=== PATIENT | female | born 1955 | race Asian ===

== ENCOUNTER 2024-12-27 19:51 | Inpatient (IN) | payer MEDICARE, OTHER, SELFPAY ==
[2024-12-27] VITALS (15 sets, daily range): BP systolic 154–197; BP diastolic 75–103; PULSE 62–69; BMI 18.3; BMI 19.0
--- NOTE | 2024-12-27 15:38 | ED.GENMED ---
History of Present Illness
<Roxy Cedeño PA-C - Last Filed: 12/27/24 21:47>
General
Chief Complaint: Blood Pressure Problem
Source: patient
Exam Limitations: none
Time Seen by Provider: 12/27/24 15:37
Nursing documentation reviewed up to this point in time: agreed with
History of Present Illness
History of Present Illness:
This is a 69-year-old female with a past medical history of hypertension presents emergency department today with concerns of dizziness and chest pressure. Patient reports that when she woke up this morning she noticed that she felt
dizzy/lightheaded. She subsequently went to [facility] to go check her blood pressure when she noticed that it was elevated, systolic in the 200s. The staff at [facility] told her that she should go to urgent care. When she went to urgent care, she
was told to report to the ER. Patient states that she has never had this sensation before. She states that it is not brought on with any head movements or ambulation. She describes her lightheadedness as feeling like 'I could fall asleep at any
moment'. She denies any headaches or neck pain. She denies any visual changes. She also states that she feels some pressure in the middle of her chest and states that it feels like indigestion. She denies any belly pain. She denies any nausea
or vomiting fevers or chills. She denies any cough, shortness of breath, or flulike symptoms. She states that she is to be on amlodipine for her blood pressure but states that she was feeling well so she stopped taking it around 3 months ago.
Past History
<Roxy Cedeño PA-C - Last Filed: 12/27/24 21:47>
Past History
ED Past Medical History: Other (Rash from PCN in the past)
Social History
Tobacco: Non-smoker
Personal:
Living: with family
Review of Systems
<Roxy Cedeño PA-C - Last Filed: 12/27/24 21:47>
Review of Systems
All Other Systems: ROS reviewed and negative except as documented in HPI and ROS
Phy Exam
<Roxy Cedeño PA-C - Last Filed: 12/27/24 21:47>
Physical Exam
Physical Exam:
General: Patient is well appearing and in no acute distress; non-toxic
Skin: Warm and dry, no rashes or lesions
Head: Normocephalic, atraumatic
Eyes: Sclera non-icteric. EOMs intact.
Cardiac: 2+ systolic murmur otherwise regular rhythm
Peripheral Vascular: No lower extremity swelling or edema
Pulm: Normal respiratory effort, no wheezes, rales, or rhonchi
Abdomen: No abdominal tenderness to palpation
Neuro: CN II-XII intact, no focal neurologic deficits. Normal finger to nose, heel to graham testing.
Psychiatric: Appropriate mood and affect.
Course
<Roxy Cedeño PA-C - Last Filed: 12/27/24 21:47>
Orders/Labs/Results
Orders:
Orders
12/27/24 Breakfast
Sodium, 2 Gram
At Your Request: Full Participation
12/27/24 14:43
Electrocardiogram (*1) Urgent
Reason for Study: Vertigo / Dizzy
12/27/24 14:44
EKG- Treatment ONCE
12/27/24 15:32
CMP [Comprehensive Metabolic Panel] Urgent
Complete Blood Count/With Diff Urgent
12/27/24 16:10
CT Head W/o Iv Contrast Urgent
Comment:
Reason For Exam: dizziness
12/27/24 16:16
Troponin I Urgent
12/27/24 16:24
Aspirin 325 mg PO NOW STA
12/27/24 17:43
Orthostatic VS- Treatment ONCE
12/27/24 18:15
Electrocardiogram (*1) Urgent
Reason for Study: Chest Pain
EKG- Treatment ONCE
12/27/24 19:04
Electrocardiogram (*1) Urgent
Reason for Study: Chest Pain
12/27/24 19:12
Amlodipine [Norvasc] 5 mg PO NOW STA
12/27/24 19:13
Troponin I Urgent
12/27/24 19:21
Admit/Transfer Patient As Directed
Co-Sign Provider:
Level of Care: Inpatient admission
Assign to:: Telemetry
Physician / Group: Gene
Diagnosis: Hypertensive Urgency, Chest Pain
Reason for Telemetry: Arrhythmia
Date to Stop Telemetry: 12/30/24
Time to Stop Telemetry: 11:00
Reason for Hospitalization: BP control
Expected length of stay greater than two midnights?: Yes
ELOS- Estimated Length of Stay in days: 3
I certify the patient meets the requirements for IP care: Yes
PRN Pain Medication Management As Directed
May give lesser potent ordered pain med per pt: Yes
preference::
Protocol:: Medication orders for pain may be administered in a
manner that supports deferring to patient preference
when the pt is:
- Requesting an ordered lesser potent pain medication.
Least to most potent pain medications are defined
as: acetaminophen < NSAID < tramadol < opioids
(morphine, oxycodone, hydromorphone).
- Requesting a lesser dose of the same medication IF
ORDERED.
- Requesting a less intrusive route of administration
if both routes are prescribed by the provider (PO <
IV).
12/27/24 19:24
Code Status As Directed
Resuscitation Status: Full Code
12/27/24 20:29
Acetaminophen [Tylenol] 650 mg PO Q4HPRN PRN
Gabapentin [Neurontin] 300 mg PO BID
HydrALAZINE [Apresoline] 5 mg IV Q4HPRN PRN
12/27/24 20:29
CARDIOLOGY CONSULT Routine
Consulting Provider: Edgar Magana
Was physician already notified: Yes
Activity As Directed
Activity Level: Out of Bed-Early Mobility
With Assistance
Orthostatic Vital Signs As Directed
Orthostatic VS Frequency: BID
Vital Signs As Directed
Frequency: Per unit guidelines
Weight As Directed
Frequency: Daily
DX Deep Vein Thrombosis Video Routine
12/28/24 06:00
Basic Metabolic Panel IN AM
Complete Blood Count/No Diff IN AM
Hgba1c [Glycohemoglobin (HgbA1c)] IN AM
Lipid Profile [Cardiovascular Evaluation] IN AM
Magnesium IN AM
12/28/24 08:00
Amlodipine [Norvasc] 5 mg PO DAILY
Aspirin Chewable [Low Strength Aspirin] 81 mg PO DAILY
12/28/24 18:00
Enoxaparin Sodium [Lovenox] 30 mg SC QPM
12/30/24 11:00
DC Protocol for Telemetry ONCE
Abnormal Lab Results
12/27/24
15:32
RBC 3.60 L 10^6/uL
(4.20-5.40)
Hgb 11.7 L g/dL
(12.0-16.0)
Hct 33.3 L %
(37.0-47.0)
MCH 32.5 H pg
(27.0-31.0)
MPV 10.7 H fL
(7.4-10.4)
Glucose 103 H mg/dl
(70-99)
12/27/24 15:32
12/27/24 15:32
Vital Signs
Initial and Last Documented VS:
Initial Vital Signs
Temp Pulse Resp BP Pulse Ox
36.6 C 65 18 190/90 99
12/27/24 14:40 12/27/24 14:40 12/27/24 14:40 12/27/24 14:40 12/27/24 14:40
Last Documented Vital Signs
Temp Pulse Resp BP Pulse Ox
36.9 C 79 15 154/75 98
12/27/24 23:38 12/27/24 23:38 12/27/24 23:38 12/27/24 23:38 12/27/24 23:38
<Derrick Basilio MD - Last Filed: 12/27/24 23:43>
Orders/Labs/Results
Orders:
Orders
12/27/24 Breakfast
Sodium, 2 Gram
At Your Request: Full Participation
12/27/24 14:43
Electrocardiogram (*1) Urgent
Reason for Study: Vertigo / Dizzy
12/27/24 14:44
EKG- Treatment ONCE
12/27/24 15:32
CMP [Comprehensive Metabolic Panel] Urgent
Complete Blood Count/With Diff Urgent
12/27/24 16:10
CT Head W/o Iv Contrast Urgent
Comment:
Reason For Exam: dizziness
12/27/24 16:16
Troponin I Urgent
12/27/24 16:24
Aspirin 325 mg PO NOW STA
12/27/24 17:43
Orthostatic VS- Treatment ONCE
12/27/24 18:15
Electrocardiogram (*1) Urgent
Reason for Study: Chest Pain
EKG- Treatment ONCE
12/27/24 19:04
Electrocardiogram (*1) Urgent
Reason for Study: Chest Pain
12/27/24 19:12
Amlodipine [Norvasc] 5 mg PO NOW STA
12/27/24 19:13
Troponin I Urgent
12/27/24 19:21
Admit/Transfer Patient As Directed
Co-Sign Provider:
Level of Care: Inpatient admission
Assign to:: Telemetry
Physician / Group: Gene
Diagnosis: Hypertensive Urgency, Chest Pain
Reason for Telemetry: Arrhythmia
Date to Stop Telemetry: 12/30/24
Time to Stop Telemetry: 11:00
Reason for Hospitalization: BP control
Expected length of stay greater than two midnights?: Yes
ELOS- Estimated Length of Stay in days: 3
I certify the patient meets the requirements for IP care: Yes
PRN Pain Medication Management As Directed
May give lesser potent ordered pain med per pt: Yes
preference::
Protocol:: Medication orders for pain may be administered in a
manner that supports deferring to patient preference
when the pt is:
- Requesting an ordered lesser potent pain medication.
Least to most potent pain medications are defined
as: acetaminophen < NSAID < tramadol < opioids
(morphine, oxycodone, hydromorphone).
- Requesting a lesser dose of the same medication IF
ORDERED.
- Requesting a less intrusive route of administration
if both routes are prescribed by the provider (PO <
IV).
12/27/24 19:24
Code Status As Directed
Resuscitation Status: Full Code
12/27/24 20:29
Acetaminophen [Tylenol] 650 mg PO Q4HPRN PRN
Gabapentin [Neurontin] 300 mg PO BID
HydrALAZINE [Apresoline] 5 mg IV Q4HPRN PRN
12/27/24 20:29
CARDIOLOGY CONSULT Routine
Consulting Provider: Edgar Magana
Was physician already notified: Yes
Activity As Directed
Activity Level: Out of Bed-Early Mobility
With Assistance
Orthostatic Vital Signs As Directed
Orthostatic VS Frequency: BID
Vital Signs As Directed
Frequency: Per unit guidelines
Weight As Directed
Frequency: Daily
DX Deep Vein Thrombosis Video Routine
12/28/24 06:00
Basic Metabolic Panel IN AM
Complete Blood Count/No Diff IN AM
Hgba1c [Glycohemoglobin (HgbA1c)] IN AM
Lipid Profile [Cardiovascular Evaluation] IN AM
Magnesium IN AM
12/28/24 08:00
Amlodipine [Norvasc] 5 mg PO DAILY
Aspirin Chewable [Low Strength Aspirin] 81 mg PO DAILY
12/28/24 18:00
Enoxaparin Sodium [Lovenox] 30 mg SC QPM
12/30/24 11:00
DC Protocol for Telemetry ONCE
Abnormal Lab Results
12/27/24
15:32
RBC 3.60 L 10^6/uL
(4.20-5.40)
Hgb 11.7 L g/dL
(12.0-16.0)
Hct 33.3 L %
(37.0-47.0)
MCH 32.5 H pg
(27.0-31.0)
MPV 10.7 H fL
(7.4-10.4)
Glucose 103 H mg/dl
(70-99)
12/27/24 15:32
12/27/24 15:32
Vital Signs
Initial and Last Documented VS:
Initial Vital Signs
Temp Pulse Resp BP Pulse Ox
36.6 C 65 18 190/90 99
12/27/24 14:40 12/27/24 14:40 12/27/24 14:40 12/27/24 14:40 12/27/24 14:40
Last Documented Vital Signs
Temp Pulse Resp BP Pulse Ox
36.9 C 79 15 154/75 98
12/27/24 23:38 12/27/24 23:38 12/27/24 23:38 12/27/24 23:38 12/27/24 23:38
<Roxy Cedeño PA-C - Last Filed: 12/27/24 21:47>
MDM/Problems Addressed
Differential Diagnosis Includes:
ddx include ACS, CVA, symptomatic anemia, orthostatic hypertension, BPPV, vestibular neuritis, hyponatremia
MDM/Problems Addressed:
69-year-old female with past medical history of hypertension who presents emergency department today with concerns of dizziness/lightheadedness that started this morning. She went to go check her blood pressure at [facility] and noticed it was
elevated and she was sent to the emergency department. She also notes some chest pressure with this as well. No associated headaches or visual changes. Patient states that she has no history of cardiac disease and does not currently follow with a
servicing manager. On physical exam she is well-appearing and in no acute distress. She has no focal neurologic deficits. Her lungs are clear bilaterally. Her EKG initially upon arrival shows mild ST elevation in leads V1-V3 with T wave inversion in
leads V4-V6. Initital troponin undetectable. In light of persistent dizziness, chest pain, abnormal EKG, will admit to trend troponins and for telemetry monitoring.
Chronic conditions affecting care:
HTN
<Roxy Cedeño PA-C - Last Filed: 12/27/24 21:47>
*Pulse Oximetry
Patient hypoxic: no
*Critical Care Note
Total Time (30-74mins, 75-104mins- exclusive of procedures): Not Applicable
Data Reviewed
Review of Other/Old Records Reveals: Records (Reviewed)
<Roxy Cedeño PA-C - Last Filed: 12/27/24 21:47>
Update Note
Update Note:
6:10 pm--Patient reports that her lightheadedness has been improving without intervention
ED Attending Note
<Roxy Cedeño PA-C - Last Filed: 12/27/24 21:47>
-
Portions of this chart may have been created with voice recognition software.� Occasional wrong word or��sound alike� substitutions may have occurred due to the inherent limitations of voice recognition software.
<Derrick Basilio MD - Last Filed: 12/27/24 23:43>
ED Attending Note
Patient seen and examined by attending physician: Yes
ED Attending Note:
I have seen and evaluated the patient with a [id number]-[id number] encounter. I have spoken to the advance practicer provider and involved in the medical history, the physical exam, medical decision making.
Evaluation and management service: agree unless noted differently below.
Results interpretation: agree unless noted differently below.
Focused HPI: 69-year-old female presents to the ER for evaluation of lightheadedness and chest discomfort. Patient reports that she was in his normal state of health until a few hours ago when she started to feel very lightheaded. She says that
she went to the pharmacy to be evaluated they checked her blood pressure and noted that it was very high. She says that she was referred to the emergency room to be assessed. She says she feels lightheadedness has passed total duration was 2 to 3
hours. She did have about 30 minutes of associated chest pain with the symptoms but this seems to have resolved. No shortness of breath, no palpitations. She denies any headache. Denies any change in vision or speech, focal weakness or numbness.
Denies similar symptoms in the past. She does have a history of hypertension in the past was on amlodipine but discontinued this after lifestyle adjustments.
Physical exam: Awake alert not in distress. Hypertensive 190/90 otherwise normal vitals. Her lungs are clear to auscultation bilaterally. No cardiac rubs, gallops, murmurs appreciated. She has no cranial nerve deficits, motor and sensory intact
in all extremities.
Medical Decision Makin-year-old female presents for evaluation of prolonged dizziness/lightheadedness, transient chest pain. Feels well here now. Vitals and exam as above. Her EKG is abnormal with some ST elevations and T wave inversions.
CT head no acute pathology. Labs reviewed CBC and CMP unremarkable, troponin serially undetectable. She remains hypertensive. With prolonged symptoms and abnormal EKG will admit for monitoring and cardiology consultation.
Discharge Plan
Departure
Patient Disposition: Admit
Date of Disposition: 12/27/24
Time of Disposition: 18:39
Admit to: Med/Surg
Presentation/result/management discussed w/ accepting MD/DO: Hospitalist
Patient with high blood pressure during this ER visit?: Yes
Condition: Fair
Discharge Problem:
Chest pain, Dizziness
Interventions
Interventions:
*Risk Screen - Suicide Last Done: 12/27/24 20:56
*General Assessment Last Done: 12/27/24 14:40
*Neglect/Abuse Screening Last Done: 12/27/24 15:17
*ED- Fall Risk Assessment Last Done: 12/27/24 15:17
*ED COVID-19 Vaccine History Last Done: 12/27/24 20:56
*Nursing Disposition Last Done: 12/27/24 20:05
ED- Cardiac Assessment Last Done: 12/27/24 15:35
ED- Neurological Assessment Last Done: 12/27/24 15:35
ED- Pulmonary Assessment Last Done: 12/27/24 15:35
Discharge Date and Time
Discharge Date/Time: 12/27/24 20:23
[2024-12-27 15:46] LABS: % Basophils 0.7 % (0-2); % Eosinophils 3.4 % (0-6); % Immature Granulocytes 0.3 % (0-0.5); % Lymphocytes 39.8 % (20.5-51.1); % Monocytes 6.8 % (1.7-9.3); Absolute Basophils 0.1 10^3/uL (0-0.2); Absolute Eosinophils 0.2 10^3/uL (0-0.7); Absolute Lymphocytes 2.8 10^3/uL (1.2-3.4); Absolute Monocytes 0.5 10^3/uL (0.1-0.6); Absolute Neutrophils 3.5 10^3/uL (1.4-6.5); Hematocrit 33.3 % (37.0-47.0); Hemoglobin 11.7 g/dL (12.0-16.0); Mean Corp Hgb Conc. 35.1 g/dL (33.0-37.0); Mean Corpuscular Hgb 32.5 pg (27.0-31.0); Mean Corpuscular Volume 92.5 fL (81.0-99.0); Mean Platelet Volume 10.7 fL (7.4-10.4); Nucleated Red Blood Cells % 0 %; Platelet Count 174 10^3/uL (130-400); Red Cell Dist. Width 12.1 % (11.5-14.5); White Blood Cell Count 7.1 10^3/uL (4.8-10.8)
[2024-12-27 16:08] LABS: ALT (SGPT) 23 U/L (0-35); AST (SGOT) 29 U/L (14-36); Alkaline Phosphatase 88 U/L (38-126); Blood Urea Nitrogen 14 mg/dl (7-17); Calcium 9.6 mg/dl (8.4-10.2); Carbon Dioxide 27 mmol/L (22-30); Chloride 104 mmol/L (98-107); Estimated Creatinine Clearance 59 ml/min; Glucose 103 mg/dl (70-99); Sodium 138 mmol/L (135-145); Total Bilirubin 0.4 mg/dl (0.2-1.3); Total Protein 7.1 g/dl (6.3-8.2); eGFR > 60.00
[2024-12-27] MEDS: ASPIRIN 325 MG PO (16:42)
[2024-12-27 16:56] LABS: Troponin I < 0.012 ng/ml
[2024-12-27] MEDS: NORVASC 5 MG PO (19:20)
--- NOTE | 2024-12-27 19:21 | HPS.HSE ---
Family Physician
-
Family Physician: Cody Morales
Chief Complaint
-
Dizziness and Elevated Blood Pressure
History of Present Illness
Patient is a 69 y/o female past medical history of hypertension who presents with dizziness and elevated blood pressure. Earlier today patient bent over to pick something up off the floor, and when she stood up she felt very dizzy. She describes
it as lightheadedness, not a spinning sensation. She intermittent episodes of dizziness since that time but the first episode was the worst. She reports continued to feel very tired and overall weakness. [facility]
pressure and found it to be very elevated. Patient initially went to urgent care and then sent to the emergency department. While in the ED she developed chest tightness which last about 30 minutes. She denies shortness of breath, palpitations or
diaphoresis. She notes she previously was taking amlodipine which she stopped on her own about 6-7 months ago. She reports prior stress test about 5 years.
Medical History
Past Medical History
Past Medical History: Reports Other
Additional Past Medical History:
Cervical Spinal Stenosis
Essential Hypertension
Abnormal ECG
Past Surgical History: Reports None
Social History
Tobacco: Non-smoker
Alcohol: None
Family History
Family History: Not pertinent
Allergies / Home Medications
Allergies reflects when Allergies were last updated in [facility]
Home Medications with original date entered in [facility])
Allergy/Medication List:
Allergies
Allergy/AdvReac Type Severity Reaction Status Date / Time
clindamycin Allergy Rash Verified 06/18/17 11:14
Penicillins Allergy Unknown Verified 06/18/17 09:00
Home Medications
gabapentin 300 mg capsule 300 mg PO BID 12/27/24
ibuprofen 200 mg tablet 400 mg PO DAILYPRN PRN MILD PAIN 12/27/24
omega-3 acid ethyl esters 1 gram capsule 2 cap PO BID 12/27/24
therapeutic multivitamin 1 tab PO DAILY 12/27/24
Review of Systems
-
A 12 point ROS was completed and negative except as noted: Yes
Constitutional: Denies Fever or Chills
Respiratory: Denies Cough or Trouble Breathing
Cardiac: Reports See HPI
Physical Exam
Vital Signs
Vital Signs
Temp Pulse Resp BP Pulse Ox
97.8 F 64 18 191/93 99
12/27/24 14:40 12/27/24 19:20 12/27/24 18:30 12/27/24 19:20 12/27/24 18:01
Physical Exam
General: Comfortable and Conversant
HEENT: Anicteric and Moist mucous membranes
Respiratory: Clear and Non Labored Respirations
Cardiac: S1/S2 and Regular Rhythm
GI: Soft and Non Tender
Rectal: Deferred by Provider
Musculoskeletal: No Clubbing, No Cyanosis and No Edema
Skin: Warm and Dry
Neuro: Awake, Alert, Oriented and Nonfocal/grossly intact
Psych: Calm
Laboratory Results
-
12/27/24 15:32
12/27/24 15:32
Laboratory Results
Total Bilirubin 0.4 mg/dl (0.2-1.3) 12/27/24 15:32
AST 29 U/L (14-36) 12/27/24 15:32
ALT 23 U/L (0-35) 12/27/24 15:32
Alkaline Phosphatase 88 U/L (38-126) 12/27/24 15:32
Troponin I < 0.012 ng/ml 12/27/24 16:16
Data Reviewed
-
Lab Data: Labs Reviewed by me
Impression/Plan
-
Hypertensive Urgency
-Resume amlodipine 5mg Daily with first dose now
-Add hydralazine prn
-If BP remains elevated consider nitro drip
Chest Tightness with Abnormal ECG
-Initial troponin negative - Await repeat troponin
-Review of outpatient records indicate prior abnormal ECG and prior stress test, but I am unable to review prior office tracing
-Reviewed with Cardiology who will see patient tomorrow and compare ECGs
-If troponin turns positive plan to start heparin
-Start low dose aspirin
Dizziness, possible related to uncontrolled hypertension vs orthostasis vs BPPV
-Head CT negative
-Check orthostatic VS
Cervical Spinal Stenosis
-Continue gabapentin
DVT proph: Lovenox
Code Status: Full Code
--- NOTE | 2024-12-27 19:21 | W.PN.UPDATE ---
Update Note
Progress Note Update
This is an addendum to the H&P written by Gwen Yost on 12/27/2024.� Patient seen and examined independently with PA.
69-year-old female past medical history of hypertension, cervical spinal stenosis presenting with dizziness and chest pressure today with blood pressure systolics [address] [facility].� She was referred to urgent care and told to come
to the ER.� Denies headache or neck pain.� Denies visual changes.� Had been on amlodipine for blood pressure but was feeling well so she stopped it 3 months ago.
Blood pressure as high as 190/90.
EKG shows normal sinus rhythm, LVH, nonspecific T wave inversions, subtle ST elevations in leads V1 to V3.� Troponin negative.
CT head shows no acute abnormality.
Patient with hypertensive urgency with associated chest pressure now resolved,�due to medication noncompliance.
Aspirin 325 mg given in ER.
Restart amlodipine.� As needed hydralazine.� Trend troponins.� Cardiology consulted.
[2024-12-27 19:49] LABS: Troponin I < 0.012 ng/ml
[2024-12-27] MEDS: NEURONTIN 300 MG PO (20:49)
[2024-12-27] MEDS: APRESOLINE 5 MG IV (20:53)
[2024-12-28] VITALS (7 sets, daily range): BP systolic 110–166; BP diastolic 66–87; PULSE 67–76; BMI 19.0
[2024-12-28 05:59] LABS: Hemoglobin 12.3 g/dL (12.0-16.0); Mean Corp Hgb Conc. 34.2 g/dL (33.0-37.0); Mean Corpuscular Hgb 31.5 pg (27.0-31.0); Mean Corpuscular Volume 92.1 fL (81.0-99.0); Mean Platelet Volume 10.1 fL (7.4-10.4); Platelet Count 205 10^3/uL (130-400); Red Blood Cell Count 3.91 10^6/uL (4.20-5.40); Red Cell Dist. Width 11.9 % (11.5-14.5); White Blood Cell Count 7.7 10^3/uL (4.8-10.8)
[2024-12-28 06:20] LABS: Blood Urea Nitrogen 13 mg/dl (7-17); Calcium 9.7 mg/dl (8.4-10.2); Carbon Dioxide 29 mmol/L (22-30); Chloride 102 mmol/L (98-107); Estimated Creatinine Clearance 52 ml/min; Glucose 162 mg/dl (70-99); HDL Cholesterol 32 mg/dl; LDL Cholesterol, Calculated 114 mg/dl; Magnesium 2.1 mg/dl (1.6-2.3); Potassium 3.8 mmol/L (3.5-5.1); Sodium 140 mmol/L (135-145); Total Cholesterol 193 mg/dl (50-199); Triglyceride 239 mg/dl (10-149); Very Low Density Lipoprotein 47 mg/dl (0-30); eGFR > 60.00
[2024-12-28] MEDS: NEURONTIN 300 MG PO ×2 (07:37→20:31)
[2024-12-28] MEDS: LOW STRENGTH ASPIRIN 81 MG PO (07:37)
[2024-12-28] MEDS: NORVASC 5 MG PO (07:37)
--- NOTE | 2024-12-28 12:02 | CM ---
Initial assessment completed with pt at bedside.
Pt is a 69yr old admitted with chest pain and hypertensive urgency.
At baseline, pt lives with her in a 2 level home with 2 steps to enter.
Pt is indep and drives at baseline. no current/hx of equip/VN/SNF
PCP; Cody Morales
Pharm; [facility]
PLAN; Home with no needs.
--- NOTE | 2024-12-28 12:42 | W.PN.HOSP.TC ---
Today's Communication/Plan
-
Continue aspirin and start statin
Monitor on telemetry
Order echo if patient stays to tomorrow
Consider cardiac cath
Assessment / Plan
Assessment / Plan
#Chest pain and lightheadedness
-Differentials include ACS/unstable angina versus symptomatic hypertensive urgency
-History of abnormal ECG and abnormal OP stress test though no records available
-Initial ECG was nonischemic appearing, no signs of Wellens; troponin negative x 3
-With previous abnormal stress test she is at least moderate risk pretest probability
-S/p full dose aspirin in the ED, started on daily aspirin upon admission
-Start moderate intensity statin for dyslipidemia
-Consider inpatient LHC + angiography
-Monitor on telemetry
#Dyslipidemia
-Home regimen included omega-3 fatty acids
-LDL here >100, history of abnormal stress test
-Will start moderate intensity statin, will need repeat lipid panel and LFTs in 3 months
#Cardiac murmur
-[facility], crescendo decrescendo quality
-Suspect that this is aortic stenosis, likely calcific with age
-Will order echocardiogram for 12/29 if patient remains here
-Should have OP follow-up with jewelry maker for echo if discharged prior
#Hypertensive urgency
-Likely secondary to noncompliance; noted to be high yesterday at [facility]
-Home regimen includes amlodipine 5 mg; no history of hypertensive systemic disease
-Blood pressure upon arrival was as high as 191/93 mmHg, improved back on amlodipine
-Most recent blood pressure with SBP near 140 mmHg
-Escalate regimen if BP >140/90 mm consistently
-As needed IV hydralazine for now
-Follow-up TTE for signs of concentric LVH
#Chronic cervical myelopathy
-Chronic, home regimen includes gabapentin
-No signs of significant upper extremity weakness or sensory deficit
DVT prophylaxis: Lovenox
Diet: Regular, 2 g sodium restricted
CODE STATUS: Full code
Anticipated Discharge: 24 - 48 hours
Subjective/Interval History
-
Date of Service: December 28, 2024
Seen and examined at the bedside. No acute events reported overnight. AFVSS this morning
Blood pressure improved on amlodipine. She denies any chest pain at present. Troponin negative x 3, no events per telemetry
She denies any new complaints as of this morning
Objective Data
-
Labs:
Laboratory Results
12/28/24
05:42
WBC 7.7
Hgb 12.3
Hct 36.0 L
Plt Count 205
Sodium 140
Potassium 3.8
Chloride 102
Carbon Dioxide 29
BUN 13
Creatinine 0.7
Glucose 162 H
Calcium 9.7
Vital Signs:
Vital Signs
Temp Pulse Resp BP Pulse Ox
98.4 F 75 16 139/68 98
12/28/24 11:32 12/28/24 11:32 12/28/24 11:32 12/28/24 11:32 12/28/24 11:32
I&O
12/27/24 12/28/24 12/29/24
05:59 06:59 06:59
Intake Total
Balance
Review of Systems
-
History Source: Patient
All other systems: Reviewed and negative
Physical Exam
-
General: Well Developed, No Apparent Distress, Comfortable and Other (Thin female)
HEENT: Normocephalic, Atraumatic and Moist Mucous Membranes
Respiratory: Clear to Auscultation and Non Labored Respirations
Cardiac: Regular Rhythm, S1/S2 and Murmur (3/6 MARKUS at [facility]; normal carotid upstroke); Negative Rub, JVD or Gallop
GI: Soft, Nontender, Nondistended and Normal Bowel Sounds
Musculoskeletal: No Clubbing, No Cyanosis and No Edema
Skin: Warm, Dry and Normal Turgor; Negative Rash
Neuro: AO x 3 and Nonfocal/Grossly Intact
Psych: Calm
Data Reviewed
-
Labs: Labs Reviewed by me and Discussed with Patient
[2024-12-28 13:05] LABS: Glycohemoglobin (HgbA1c) 6.1 % (4.0-5.6)
--- NOTE | 2024-12-28 13:06 | CON.CAR ---
Consultation
Consultation Request
Date/Time Consultation Requested: 12/28/2024
Date/Time Consultation Performed: 12/28/2024
Requesting Provider: Dr. Fernandez
Performing Provider: Dr. Magana
Reason for Consultation: Chest pain/hypertensive crisis
Medical History
-
Chief Complaint: Uncontrolled hypertension
History of Present Illness:
69-year-old female (known to Dr. Yanes, her primary Office Professionals--but has not followed up in approximately 5 years) presenting with uncontrolled hypertension. The patient states that she stopped taking amlodipine over 7 months ago of her own
accord; her hypertension was primarily being managed by her PCP. She initially saw Dr. Yanes 5 years ago for an abnormal EKG (anterolateral T wave inversion). The patient's blood pressure at Urgent Care was 203/104 mmHg; therefore, she was
referred to the ER for management. In the ER, the patient complained of midsternal chest pain for almost an hour, which eventually resolved as her blood pressure came down. She currently feels well and denies shortness of breath, palpitations,
syncopal events, or lower extremity swelling.
Past Medical History
Past Medical History: HTN
Past Surgical History: None
Social History
Tobacco: Non-Smoker
Alcohol: None
Drug: None
Personal:
Living: With Family
Allergies / Home Medications
Allergy/AdvReac Type Severity Reaction Status Date / Time
clindamycin Allergy Rash Verified 06/18/17 11:14
Penicillins Allergy Unknown Verified 06/18/17 09:00
�Medication �Instructions �Recorded �Confirmed �Type
gabapentin 300 mg capsule 300 mg PO BID 12/27/24 12/27/24 History
ibuprofen 200 mg tablet 400 mg PO DAILYPRN PRN MILD PAIN 12/27/24 12/27/24 History
omega-3 acid ethyl esters 1 gram 2 cap PO BID 12/27/24 12/27/24 History
capsule
therapeutic multivitamin 1 tab PO DAILY 12/27/24 12/27/24 History
Review of Systems
-
All other systems: Negative unless noted
Physical Exam
Vital Signs
Temp Pulse Resp BP Pulse Ox
98.4 F 75 16 139/68 98
12/28/24 11:32 12/28/24 11:32 12/28/24 11:32 12/28/24 11:32 12/28/24 11:32
Lab Results
12/28/24 05:42
12/28/24 05:42
Troponin I < 0.012 ng/ml 12/27/24 19:13
Physical Exam
General: No Apparent Distress and Comfortable
HEENT: Anicteric
Respiratory: Clear
Cardiac: S1/S2 and Murmur (2-3/6 systolic murmur)
Breast: Deferred by me
GI: Soft
Rectal: Deferred by Provider
Musculoskeletal: No Clubbing, No Cyanosis and No Edema
Neuro: AO x 3
Psych: Calm
Impression / Plan
-
69-year-old female (known to Dr. Yanes, her primary Office Professionals--but has not followed up in approximately 5 years) presenting with uncontrolled hypertension. The patient states that she stopped taking amlodipine over 7 months ago of her own
accord; her hypertension was primarily being managed by her PCP. She initially saw Dr. Yanes 5 years ago for an abnormal EKG (anterolateral T wave inversion). The patient's blood pressure at Urgent Care was 203/104 mmHg; therefore, she was
referred to the ER for management. In the ER, the patient complained of midsternal chest pain for almost an hour, which eventually resolved as her blood pressure came down. She currently feels well and denies shortness of breath, palpitations,
syncopal events, or lower extremity swelling.
Hypertensive crisis:
-Patient's blood pressure was 203/104 at urgent care (patient stopped taking Norvasc over 7 months ago of her own accord); now improved with resumption of Norvasc.
-Continue Norvasc.
Chest pain/abnormal EKG:
-The patient's EKG is essentially unchanged compared to previous EKG 5 years ago (lateral T wave inversion).
-Chest pain was most likely secondary to uncontrolled hypertension; cardiac enzymes are negative.
-Will obtain an echocardiogram tomorrow to reassess cardiac function (murmur auscultated on examination).
-Will obtain a Lexiscan stress test for ischemic reevaluation (stress test 5 years ago was negative).
-NPO after midnight.
Systolic heart murmur:
-Etiology unclear.
-Echocardiogram tomorrow.
Data Reviewed
-
EKG: Tracing Personally Visualized and interpreted (Sinus rhythm at 59 bpm with LVH with repolarization abnormality (lateral T wave inversion).)
Labs: Labs Reviewed by me
Old Records: Reviewed (Cardiology office visit 11/20/2019)
[2024-12-28 13:48] LABS: Troponin I < 0.012 ng/ml
[2024-12-28] MEDS: LIPITOR 20 MG PO (17:18)
[2024-12-29 03:40] VITALS: BP 134/63
[2024-12-29 06:00] VITALS: BMI 18.6
[2024-12-29 06:35] LABS: % Basophils 0.6 % (0-2); % Eosinophils 2.8 % (0-6); % Immature Granulocytes 0.4 % (0-0.5); % Lymphocytes 36.5 % (20.5-51.1); % Monocytes 6.4 % (1.7-9.3); % Neutrophils 53.3 % (42.2-75.2); Absolute Basophils 0.1 10^3/uL (0-0.2); Absolute Eosinophils 0.2 10^3/uL (0-0.7); Absolute Lymphocytes 3.1 10^3/uL (1.2-3.4); Absolute Monocytes 0.5 10^3/uL (0.1-0.6); Absolute Neutrophils 4.5 10^3/uL (1.4-6.5); Hematocrit 35.8 % (37.0-47.0); Hemoglobin 12.3 g/dL (12.0-16.0); Mean Corp Hgb Conc. 34.4 g/dL (33.0-37.0); Mean Corpuscular Hgb 31.9 pg (27.0-31.0); Mean Corpuscular Volume 92.7 fL (81.0-99.0); Mean Platelet Volume 11.2 fL (7.4-10.4); Nucleated Red Blood Cells % 0 %; Platelet Count 174 10^3/uL (130-400); Red Blood Cell Count 3.86 10^6/uL (4.20-5.40); White Blood Cell Count 8.5 10^3/uL (4.8-10.8)
[2024-12-29 06:58] LABS: Blood Urea Nitrogen 19 mg/dl (7-17); Calcium 10.3 mg/dl (8.4-10.2); Carbon Dioxide 22 mmol/L (22-30); Chloride 105 mmol/L (98-107); Estimated Creatinine Clearance 51 ml/min; Glucose 123 mg/dl (70-99); Potassium 4.2 mmol/L (3.5-5.1); Sodium 140 mmol/L (135-145); eGFR > 60.00
[2024-12-29 07:15] VITALS: BP 141/71
--- NOTE | 2024-12-29 08:37 | W.PN.CD ---
Today's Communication / Plan
-
For echo and stress test
Reviewed importance of medication adherence
If echo and stress are reassuring she may return to the care of her PCP and see us in cardiology if she wishes or if PCP requests
Impression / Plan
-
69-year-old female (known to Dr. Yanes, her primary Referral Nurse--but has not followed up in approximately 5 years) presenting with uncontrolled hypertension. The patient states that she stopped taking amlodipine over 7 months ago of her own
accord; her hypertension was primarily being managed by her PCP. She initially saw Dr. Yanes 5 years ago for an abnormal EKG (anterolateral T wave inversion). The patient's blood pressure at Urgent Care was 203/104 mmHg; therefore, she was
referred to the ER for management. In the ER, the patient complained of midsternal chest pain for almost an hour, which eventually resolved as her blood pressure came down. She currently feels well and denies shortness of breath, palpitations,
syncopal events, or lower extremity swelling.
HTN:
- Now much improved
Chest pain:
- For echo and stress
Abnormal EKG
- Stable likely from HTNsive heart disease
Systolic heart murmur
- For echo
Mixed hyperlipidemia
- Low HDL, mild elevation of LDL
- Will defer to PCP, if stress OK, if we confirm CAD we will offer statin
Subjective:
No active CP
Physical Exam
Vital Signs/Labs
Vital Signs
Temp Pulse Resp BP Pulse Ox
98.1 F 78 16 141/71 98
12/29/24 07:15 12/29/24 07:15 12/29/24 07:15 12/29/24 07:15 12/29/24 07:15
12/28/24 12/29/24 12/30/24
06:59 06:59 06:59
Actual Weight 43.148 kg
12/29/24 05:33
12/29/24 05:33
Magnesium 2.1 mg/dl (1.6-2.3) 12/28/24 05:42
Triglycerides 239 mg/dl (10-149) H 12/28/24 05:42
LDL Cholesterol, Calc 114 mg/dl 12/28/24 05:42
VLDL Cholesterol, Calc 47 mg/dl (0-30) H 12/28/24 05:42
HDL Cholesterol 32 mg/dl 12/28/24 05:42
LAB Results
12/27/24 12/27/24 12/28/24
16:16 19:13 13:16
Troponin I < 0.012 < 0.012 < 0.012
Physical Exam
Constitutional: No acute distress
EENT: Anicteric
Cardiovascular: Rhythm & rate is regular, Pedal edema is absent and Systolic murmur present
Respiratory: Respiratory effort normal and Lungs clear to auscul.
GI: Soft and Distention absent
Neuro/Psych: Alert
Data Reviewed
-
Date of Service: December 29, 2024
[2024-12-29 12:07] VITALS: BMI 18.6
[2024-12-29 12:08] VITALS: BP 147/86
[2024-12-29] MEDS: LOW STRENGTH ASPIRIN 81 MG PO (12:09)
[2024-12-29] MEDS: NORVASC 5 MG PO (12:09)
[2024-12-29] MEDS: NEURONTIN 300 MG PO (12:09)
[2024-12-29 12:14] VITALS: BP 147/86; BP 161/83; BP 169/80; PULSE 65; PULSE 82; PULSE 89
[2024-12-29 15:20] VITALS: BP 133/69
--- NOTE | 2024-12-29 16:01 | W.DCSUMMARY ---
Addendum entered and electronically signed by Taras Busby MD 12/30/24 22:00:
severe protein calorie malnutrition
Addendum entered and electronically signed by Taras Busby MD 12/29/24 16:11:
Lipid profile triglycerides 239, total cholesterol 193, LDL 114, VLDL 47, HDL 32
-ASCVD 18.1% risk of cardiovascular event in the next 10years
--It is recommended to start a Moderate to High Intensity statin
A1c 6.1%
-Prediabetes. Lifestyle/dietary modifications
Original Note:
Discharge Summary
Discharge Data
Date of Admission: 12/27/24
Date of Discharge: 12/29/24
-
Pending Results: No
Discharge Plan
-
Patient Disposition: Home (Routine Discharge)
Discharge Diagnosis/Procedures: Chest pain
Uncontrolled hypertension
Condition: Good
Diet: As tolerated, Low Fat, Low Cholesterol, 2 Gram Sodium and No added salt
Additional Diets: Heart healthy diet
Activity: As tolerated
Driving Restrictions: As prior to admission
Activity Restrictions/Additional Instructions:
69 y/o female past medical history of hypertension
Presents with dyspnea weakness and elevated blood pressure with systolics in the 200s associated chest pressure. Improvement in blood pressure after initiating/resuming amlodipine. Did require a dose of IV hydralazine. Heart enzymes were negative
x 3. EKG that demonstrated sinus bradycardia at a rate of 59 along with LVH left ventricular hypertrophy. Per cardiology 2D echocardiogram demonstrated ventricular hypertrophy that is concentric rather than apical predominant hypertrophy.
Nuclear/stress test was normal.
In terms of blood pressure, keep a blood pressure log
-Measure blood pressure twice a day, Once in the AM and once in the PM
-Keep a log and follow up with PCP
-If BP remaining >150 then call PCP for antihypertensive adjustment
HeadCT
IMPRESSION:
No acute intracranial abnormality noted.
2d echo
CONCLUSIONS
-Left ventricle is small in size. Mild to moderate concentric left ventricular
hypertrophy which becomes more prominent at the apex (1.5-2.0 cm). Left
ventricular ejection fraction is >75%. Normal regional wall motion.
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
-Normal right ventricular size and function.
-Mild to moderate, eccentric tricuspid regurgitation. Estimated pulmonary
artery pressure of 30-35 mmHg.
No significant change in overall cardiac function since the prior study of
11/05/2019. The patient was hyperdynamic at that time also. Upon direct image
comparison, LVH has notably progressed, especially in the apical region.
Stress Test
CONCLUSION:
Small apical perfusion defect suspected to be due to soft tissue.
No clear nuclear perfusion evidence myocardial ischemia
Ejection fraction 58%
Overall moderate risk due to pharmacologic study.
Compared to previous nuclear perfusion report 10/28/2019. Previous study wasn't exercise treadmill nuclear perfusion stress test. with normal perfusion.. Small apical perfusion defect is now reported.
Outpatient PCP follow up for blood pressure control and monitoring.
Seen on the day of discharge. No new complaints. No acute overnight events.
Chest discomfort resolved. Blood pressure better.
No headaches or dizziness numbness tingling loss of sensations
Asking if she would be going home
NAD
Scleral Anicteric
MMM
No JVD
CTABL
RRR, S1/S2, MARKUS grade II/IV
Soft, NT, ND, BS+
Warm, Dry
AAOx3
Calm
More than 30 minutes spent in discharge including
Final examination of the patient
Summarizing hospital stay
Instructions for continuing care to all relevant caregivers
Preparation of discharge records, prescriptions, and referral forms
Total time spent (in minutes): 33mins
Instructions: Controlling your blood pressure through lifestyle, Checking your blood pressure at home, Left Ventricular Hypertrophy, Heart-healthy diet
Referrals:
Cody Morales MD [Family Provider] -
Derrick Yanes MD [Active] - in two to four weeks
Prescriptions:
New
atorvastatin 20 mg Tablet
20 mg PO QPM Qty: 30 0RF
amlodipine 5 mg Tablet
5 mg PO DAILY 30 Days Qty: 30 0RF
aspirin 81 mg Tablet,Chewable
81 mg PO DAILY Qty: 30 0RF
Continued
gabapentin 300 mg Capsule
300 mg PO BID
therapeutic multivitamin Tablet
1 tab PO DAILY
ibuprofen 200 mg Tablet
400 mg PO DAILYPRN PRN (Reason: MILD PAIN)
omega-3 acid ethyl esters 1 gram Capsule
2 cap PO BID
Discharge Orders:
Discharge Patient (As Directed); Ordered 12/29/24
Ordered By: Taras Busby
Discharge Date and Time
Print Language: GREEK
--- NOTE | 2024-12-29 16:13 | CM ---
MD entered order for discharge.
Spoke with pt she agrees with dc.
She said her will drive her home.
Offered VN she declined need.
PLAN Home no needs
--- NOTE | 2024-12-30 11:56 | PN.CDI ---
CDI
- -
CDI:
Physician Documentation Request
Admit Date: 12/27/24 19:51
Dear Doctor Kehinde,
Clinical Indicators:
Patient admitted with hypertensive urgency.
12/29 note/assessment, 'Pt meets criteria for severe protein calorie malnutrition social and environmental circumstances with >7.5% wt loss x 3months, prolonged inadequate intake prior to admit <50% for >1month'
Based on the above information and your assessment, which of the following most accurately represents the patient's nutritional status?
Severe Protein Calorie Malnutrition
Other (please specify)
[place] Criteria ([facility] 2017)
2 or more criteria must be present for either
non severe or severe malnutrition
Note that the criteria differs related to the
presence of an acute or chronic illness
Acute Illness Chronic Illness
Energy Intake Non Severe: <75% for >7 days Non Severe: <75% for >1 month
Severe: <50% for >5 days Severe: <75% for >1 month
Weight Loss Non Severe: 1-2% over 1 week Non Severe: 5% over 1 month
5% over 1 month 7.5% over 3 months
7.5% over 3 months 10% over 6 months
1 year N/A 20% over 1 year
Severe: >2% over 1 week Severe: >5% over 1 month
>5% over 1 month >7.5% over 3 months
>7.5% over 3 months >10% over 6 months
1 year N/A >20% over 1 year
Body Fat Non Severe: Mild Decrease Non Severe: Mild Loss
Severe: Moderate Decrease Severe: Severe Loss
Muscle Mass Non Severe: Mild Decrease Non Severe: Mild Loss
Severe: Moderate Decrease Severe: Severe Loss
Fluid Accumulation Non Severe: Mild Accumulation Non Severe: Mild Accumulation
Severe: Moderate to severe Severe: Moderate to severe
accumulation accumulation
Reduced Driver'S License Examiner Strength Non Severe: N/A Non Severe: N/A
Severe: Measurably reduced Severe: Measurably reduced
Additional criteria that can be used to Determine if Mild or Moderate Malnutrition ([employer] Manual 2018)
Mild Moderate Severe
Albumin gm/dl <3.0 gm/dl <2.5 gm/dl <2.0 gm/dl
Pre Albumin mg/dl <15 gm/dl <10 mg/dl <5.0 mg/dl
BMI <18.5 <17 <16
Use of terms such as suspected, likely, concern for, or probable (associated with a specific diagnosis that is being evaluated, monitored, or treated as if it exists) are acceptable and can be coded in the inpatient setting, when documented at the
time of discharge.
Thank you,
Crista Ochoa RN BSN
CDI Specialist
available via tiger text
Please use your independent medical judgment in providing your response.
== END 2024-12-29 17:01 | disposition home or self-care (01) | DRG 304 ==
LOC: 4 EAST ACU 19:51
PROVIDERS: Internal Medicine; Physician Assistant; Physician Assistant Medical; ADMITTING PHYSICIAN Hospitalist; ATTENDING PHYSICIAN Hospitalist; CONSULT PHYSICIAN Internal Medicine; EMERGENCY PHYSICIAN Emergency Medicine; FAMILY PHYSICIAN Internal Medicine
DX: I16.0 Hypertensive urgency (principal); E43 Unspecified severe protein-calorie malnutrition; Z68.1 Body mass index [BMI] 19.9 or less, adult; I10 Essential (primary) hypertension; R73.03 Prediabetes; E78.5 Hyperlipidemia, unspecified; I49.3 Ventricular premature depolarization; Z79.82 Long term (current) use of aspirin; Z91.148 Patient's other noncompliance with medication regimen for other reason
CPT/HCPCS: 70450; 78452; 80048; 80053; 80061; 83036; 83735; 84484; 85025; 85027; 93005; 93017; 93306; 99285; A9500